=== PATIENT | male | born 1990 | race Caucasian/White ===

== ENCOUNTER 2024-08-10 12:40 | Emergency (ER) | payer MEDICAID, SELFPAY ==
[2024-08-10 13:27] VITALS: BP 164/98; PULSE 69; RESP 18; TEMP 37.1; O2SAT 99; BMI 33.5
--- NOTE | 2024-08-10 13:32 | XR_ITS ---
Examination: CT abdomen and pelvis without contrast. Coronal 3-D reconstructions. Sagittal 2-D reconstructions. Date and time of exam:August 10, 2024 1404 hrs. Indications: Lower abdominal pain beginning this morning, history 20 mm left renal calculus on CT study June 06, 2018 CTDI: vol (mGy): 10.4 DLP: (mGycm): 653 Technique: Axial images of the abdomen have been obtained, 3 mm slice thickness Intravenous contrast material has not been administered. Low dose protocols were performed. One or more of the following dose reduction techniques were used; automated exposure control, adjustment of the mA and/or KV according to patient size, use of iterative reconstruction technique. Findings: No focal liver or splenic lesions Contracted gallbladder No pancreatic or adrenal mass Mild bilateral renal parenchymal scar formation 17 mm staghorn calculus mid to lower pole left renal calyces with significant scar formation No hydronephrosis or ureteral calculi Normal appendix No bowel obstruction No diverticulitis No bladder mass or bladder calculi No prostatomegaly Moderate osteopenia Impression: 17 mm staghorn calculus mid to lower pole calyces left kidney with significant scar reformation left kidney No hydronephrosis or ureteral calculi Normal appendix No bladder mass or bladder calculi
--- NOTE | 2024-08-10 13:32 | PD.EDRME ---
Rapid Medical Screening Exam RME Arrival date/time: 08/10/24 12:40 This is a 34-year-old male who presents to the emergency department with complaints of left flank pain. History of nephrolithiasis. I have greeted and performed a focused initial assessment of this patient. Initial appropriate labs ordered at this time. A comprehensive ED assessment and evaluation of the patient and analysis of all test and completion of medical decision making process will be conducted by additional ED provider. Chief Complaint: Abdominal Pain Time Seen by Provider: 08/10/24 13:09 Vital signs: Vital Signs Temperature 98.7 F 08/10/24 13:27 Pulse Rate 69 08/10/24 13:27 Respiratory Rate 18 08/10/24 13:27 Blood Pressure 164/98 H 08/10/24 13:27 Pulse Oximetry (%) 99 08/10/24 13:27 Oxygen Delivery Method Room Air 08/10/24 13:27
[2024-08-10 13:51] LABS: Basophils # (Auto) 0.1 Thou/mm3 (0.0-0.2); Basophils % (Auto) 1 % (0-2.5); Eosinophils # (Auto) 0.1 Thou/mm3 (0.0-0.5); Eosinophils % (Auto) 1 % (0-10); Hematocrit 42.5 % (41.0-53.0); Hemoglobin 14.7 g/dL (13.5-16.0); Immature Granulocytes % (Auto) 0 % (0-0); Immature Granulocytes Auto 0.01 Thou/mm3 (0.00-0.00); Lymphocytes # (Auto) 2.4 Thou/mm3 (1.0-4.8); Lymphocytes % (Auto) 28 % (10-50); Mean Corpuscular HGB Conc 34.6 g/dl (31.0-37.0); Mean Corpuscular Hemoglobin 31.3 pg (25.0-35.0); Mean Corpuscular Volume 90 fL (80-100); Monocytes # (Auto) 0.6 Thou/mm3 (0.0-0.8); Monocytes % (Auto) 7 % (0-12); Neutrophils # (Auto) 5.3 Thou/mm3 (1.8-7.7); Neutrophils % (Auto) 63 % (37-80); Nucleated Red Blood Cell % 0 /100 WBC (0); Platelet Count 266 Thou/mm3 (140-440); RDW Standard Deviation 42.5 fL (35.1-43.9); White Blood Count 8.5 Thou/mm3 (3.8-10.6)
[2024-08-10] MEDS: KETOROLAC INJ 60 MG/2 ML VIAL IM (13:55)
[2024-08-10] MEDS: TAMSULOSIN HCL 0.4 MG CAPSULE PO (13:56)
[2024-08-10 14:13] LABS: Alanine Aminotransferase 17 U/L (10-49); Albumin, Serum 4.3 gm/dL (3.5-5.0); Albumin/Globulin Ratio 1.5 (1.2-2.2); Alkaline Phosphatase 55 U/L (46-116); Anion Gap 6 (7-16); Aspartate Amino Transferase 17 U/L (0-34); BUN/Creatinine Ratio 10 Ratio (12-20); Bilirubin,Total 0.4 mg/dL (0.3-1.2); Blood Urea Nitrogen 12 mg/dL (9-23); Calcium 10.7 mg/dL (8.3-10.6); Calcium (Corrected) 10.7 mg/dL (8.5-10.1); Carbon Dioxide 27.2 mMol/L (20.0-31.0); Chloride 106 mMol/L (98-107); Creatinine (Component) 1.2 mg/dL (0.6-1.3); Estimated Creatinine Clearance 102.7 mL/min (>60); Globulin 2.8 gm/dL (2.3-3.5); Glucose 119 mg/dL (74-106); Lipase 39 U/L (12-53); Osmolality,Calculated 278 (275-295); Potassium 4.5 mMol/L (3.4-5.1); Sodium 139 mMol/L (136-145); Total Protein 7.1 gm/dL (5.7-8.2); eGFR > 60 See Note
[2024-08-10 15:09] LABS: Collection Type, Urine Clean Catch
[2024-08-10 16:40] LABS: Bilirubin,Urine Negative (Negative); Blood,Urine 2+ (Negative); Calcium Oxalate Crystals,Urine 1+; Color,Urine Yellow (Lt Yel-Yel); Glucose, Urine Negative (Negative); Ketones,Urine Negative (Negative); Leukocyte Esterase,Urine Positive (Negative); Nitrite,Urine Negative (Negative); Protein,Urine 1+ (Neg - Trace); RBC,Urine 47 /hpf (0-3); Specific Gravity,Urine 1.036 (1.001-1.035); Squamous Epithelial Cell,Urine 5 /hpf (0-5); Urobilinogen,Urine Negative mg/dL (0.0-1.0); WBC,Urine 6 /hpf (0-5)
[2024-08-10 16:51] LABS: Clarity,Urine Hazy (Clear/Hazy)
--- NOTE | 2024-08-10 18:23 | EDNOTE_ITS ---
<Statement entered by Cass Ledbetter MD - 08/10/24 18:35> As co-signing physician, I was present and available for consult prn. I concur with the plan and care as documented by the midlevel provider. ED Abdominal Pain RME/HPI General Chief Complaint: Abdominal Pain Stated complaint: ABDOMINAL PAIN X1 HOUR Time seen by provider: 08/10/24 13:09 Arrival date/time: 08/10/24 12:40 RME / HPI RME / HPI narrative: 34-year-old male patient came in for evaluation regarding left flank pain. Onset of symptoms since 1 hour as sudden onset of left flank pain, described as dull ache, severity moderate. Patient denies any vomiting denies any dysuria denies any hematuria denies any other complaints medication was taken prior to arrival. Related Data Previous Rx's ?Medication ?Instructions ?Recorded cephalexin 500 mg capsule 500 mg PO Q8H 7 days #21 cap s 08/10/24 ibuprofen 800 mg tablet 800 mg PO TID PRN pain #30 t abs 08/10/24 Allergies Allergy/AdvReac Type Severity Reaction Status Date / Time Sulfa (Sulfonamide Allergy Severe SWELLING Verified 08/10/24 12:41 Antibiotics) Review of Systems Review of Systems Narrative Review of Systems: Review of system reviewed and within normal limits except mentioned in HPI ED Exam Narrative Physical exam: VITAL SIGNS: Reviewed. GENERAL APPEARANCE: Alert and interactive, follows commands, no acute distress, HEAD AND FACE: Non-traumatic. ENT: PERRL, pink conjunctivitis, eyelid no trauma, Mucous membrane moist. NECK: Supple, nontender, no nuchal rigidity. CHEST: No tenderness, no crepitus, no paradoxical movement, no retractions. LUNGS: Clear, well ventilated, symmetric, no rales, no wheezing, no ronchi, no stridor, good breath sounds bilaterally. HEART: Regular rate, regular rhythm, no murmur, no gallops. ABDOMEN: Soft, positive bowel sounds, nondistended, no guarding, nontender, no rebound, no masses, RECTAL: Deferred. GENITAL: Deferred. NEUROLOGICAL: Gross motor function intact sensory function intact, Appropriate for age. MUSCULOSKELETAL: low back nontender, full range of motion. EXTREMITIES: Nontender, full range of motion. SKIN: Color pink, dry, no rash, no lacerations, no abrasions, no contusions. LYMPHATICS: Deferred. Course Quality Measures none Orders Category Date Time Status CT abdomen pelvis wo con Stat Exams 08/10/24 13:32 Completed CBC Stat Lab 08/10/24 13:40 Completed Comprehensive Metabolic Panel Stat Lab 08/10/24 13:40 Completed Lipase Stat Lab 08/10/24 13:40 Completed Urinalysis Stat Lab 08/10/24 14:48 Completed Ketorolac Inj [Toradol Inj] Med 08/10/24 13:32 Discontinued 60 mg IM X1 ONE Tamsulosin HCl [Flomax] Med 08/10/24 13:32 Discontinued 0.4 mg PO X1 ONE cephALEXin [Keflex] Med 08/10/24 18:20 Discontinued 500 mg PO X1 ONE Vital Signs Vital signs: Vital Signs Temperature 98.7 F 08/10/24 13:27 Pulse Rate 69 08/10/24 13:27 Respiratory Rate 18 08/10/24 13:27 Blood Pressure 164/98 H 08/10/24 13:27 Pulse Oximetry (%) 99 08/10/24 13:27 Oxygen Delivery Method Room Air 08/10/24 13:27 Abdominal Pain MDM MDM Narrative MDM Narrative:: 34-year-old male patient came in for evaluation regarding left flank pain. Onset of symptoms since 1 hour as sudden onset of left flank pain, described as dull ache, severity moderate. Patient denies any vomiting denies any dysuria denies any hematuria denies any other complaints medication was taken prior to arrival. Patient's workup is significant for mild UTI otherwise unremarkable. CT scan of the abdomen pelvis showed nonobstructing staghorn calculi on the left kidney, otherwise unremarkable. Results discussed with the patient. Patient was also given copy of his CT scan of the abdomen pelvis. Was advised to follow-up closely with PCP and for referral to urologist. Patient was given Keflex in the ED Patient appears nontoxic and hemodynamically stable. Patient discharged home and instructed to follow-up with primary care provider in 24 to 48 hours. Instructed to return to the emergency department immediately if worsening of symptoms Patient data External records reviewed:: None Clinical information provided by:: none Social determinants that could affect healthcare access:: none Patient has the following chronic illnesses:: History of kidney stone How is presenting disease/condition affected by chronic disease/condition?: exacerbated by Evaluation data The following diagnostics were reviewed and interpreted by me:: lab results and radiology exam(s) Lab and/or radiology exams considered but not ordered:: None Interpretation Summary: See results in MDM Medications / Prescriptions Medications or Prescriptions considered but not ordered:: None Medication administrations:: Medication Administration History Discontinued Medications Cephalexin HCl (Cephalexin 250 Mg Capsule) 500 mg PO X1 ONE Stop: 08/10/24 18:21 Ketorolac Tromethamine (Ketorolac Inj 60 Mg/2 Ml Vial) 60 mg IM X1 ONE Stop: 08/10/24 13:33 Last Admin: 08/10/24 13:55 Dose: 60 mg Documented By: Tamsulosin HCl (Tamsulosin Hcl 0.4 Mg Capsule) 0.4 mg PO X1 ONE Stop: 08/10/24 13:33 Last Admin: 08/10/24 13:56 Dose: 0.4 mg Documented By: Flomax Toradol and Keflex Consultations Consultation(s) initiated? (list below): No Diagnosis Differential diagnosis abdominal pain: abdominal pain, calculus of kidney and other (UTI) Most likely diagnosis given after review of the tests above:: UTI, staghorn calculi in the left kidney Admission Indicated Admission indicated?: not indicated Admission Request Was there a request for admission?: No Disposition Plan Disposition Plan: Discharge Discharge Attestation Discharge Attestation: The patient and all family members were given an opportunity to ask questions and understood the discharge instructions. Discharge instructions specifically effects, indications for sooner follow up or return to the emergency department, and the expected course of current diagnosis. Patient condition: Stable Discharge Plan Plan Patient Disposition: HOME (Self Care) Disposition Comment: Stable Prescriptions/Referrals Prescriptions/Med Rec: New cephalexin 500 mg capsule 500 mg PO Q8H 7 Days Qty: 21 0RF ibuprofen 800 mg tablet 800 mg PO TID PRN (Reason: pain) Qty: 30 0RF Referrals: No Primary/Family,Physician [Primary Care Provider] - In 1 week Problem List Clinical Impression: Urinary tract infection, Staghorn kidney stones Patient/Caregiver Discharge Instructions Discharge Activity: activity as tolerated Education Materials: ED Bladder Infection, Male (Adult) Additional Instructions: Thank you for the opportunity for serving you today. You are stable for discharged . You are advised to: Follow-up with your PCP in 1 to 2 days and as per referral to urologist Return to ED for worsening of symptoms Increase oral fluids Take medication as prescribed Print Language: Ivorian Stand Alone Forms: Nicol Award Info., Patient Portal Info Letter PA/RN ANESTHETIST Supervising Physician PA/RN ANESTHETIST Supervising Physician: MD Anatoly
[2024-08-10] MEDS: cephALEXin 250 MG CAPSULE 500 MG PO (18:31)
== END 2024-08-10 19:05 | disposition home or self-care (01) ==
PROVIDERS: Nurse Practitioner Primary Care; Emergency Provider Emergency Medicine
DX: N39.0 Urinary tract infection, site not specified (principal); N20.0 Calculus of kidney; Z87.442 Personal history of urinary calculi
CPT/HCPCS: 36415; 74176; 80053; 81001; 83690; 85025; 96372; 99284; J1885; A9270

== ENCOUNTER 2024-11-25 10:19 | Emergency (ER) | payer MEDICAID, SELFPAY ==
[2024-11-25 10:20] VITALS: BMI 32.5
[2024-11-25 10:35] VITALS: BP 167/98; PULSE 80; RESP 17; TEMP 36.7; O2SAT 100
--- NOTE | 2024-11-25 10:40 | XR_ITS ---
Examination: CT abdomen and pelvis without contrast. Coronal 3-D reconstructions. Sagittal 2-D reconstructions. Date and time of exam:November 25, 2024 1056 hours Comparison August 10, 2024 INDICATIONS: Left-sided flank pain and nausea today, history staghorn calculus left kidney CTDI: vol (mGy): 9.88 DLP: (mGycm): 609 Technique: Axial images of the abdomen have been obtained, 3 mm slice thickness Intravenous contrast material has not been administered. Low dose protocols were performed. One or more of the following dose reduction techniques were used; automated exposure control, adjustment of the mA and/or KV according to patient size, use of iterative reconstruction technique. Findings: No focal liver or splenic lesions No gallstones No pancreatic or adrenal mass 15 mm staghorn calculus mid to lower pole left kidney No hydronephrosis or ureteral calculi Normal appendix No bowel obstruction No diverticulitis Mild thickening of urinary bladder wall IMPRESSION: 15 mm left renal staghorn calculus No hydronephrosis or ureteral calculi Normal appendix Cystitis pattern
--- NOTE | 2024-11-25 10:41 | PD.EDMALE ---
ED Male Genitalurinary RME/HPI General Chief complaint: Urogenital-Male Stated complaint: LEFT FLANK PAIN Time Seen by Provider: 11/25/24 10:29 Source: patient Arrival date/time: 11/25/24 10:19 34-year-old male with no known medical history presents to the emergency room with a chief complaint of left flank pain x 2 days Mode of arrival: ambulatory Limitations: no limitations Related Data Previous Rx's ?Medication ?Instructions ?Recorded ibuprofen 800 mg tablet 800 mg PO TID PRN pain #30 tabs 08/10/24 hydrocodone 5 mg-acetaminophen 325 1 tab PO BID PRN pain #10 tabs 11/25/24 mg tablet nitrofurantoin 100 mg PO Q12H 5 days #10 caps 11/25/24 monohydrate/macrocrystals 100 mg capsule (Macrobid) Allergies Allergy/AdvReac Type Severity Reaction Status Date / Time Sulfa (Sulfonamide Allergy Severe SWELLING Verified 08/10/24 12:41 Antibiotics) Review of Systems Review of Systems Systems Reviewed: All systems reviewed, normal except as documented Constitutional Constitutional: Reports system reviewed and no additional complaints, except as documented, Denies fatigue, Denies fever(s), Denies headache(s) and Denies weakness Eyes Eyes: Reports system reviewed and no additional complaints, except as documented, Denies blurry vision and Denies change in vision ENT Ears, Nose, Mouth, and Throat: Reports system reviewed and no additional complaints, except as documented, Denies otalgia, Denies headache(s), Denies nasal congestion, Denies throat swelling and Denies vertigo Cardiovascular Cardiovascular: Reports system reviewed and no additional complaints, except as documented, Denies chest pain, Denies dyspnea and Denies dyspnea on exertion Respiratory Respiratory: Reports system reviewed and no additional complaints, except as documented, Denies chest congestion, Denies cough, Denies dyspnea, Denies dyspnea on exertion and Denies wheezing Gastrointestinal Gastrointestinal: Reports system reviewed and no additional complaints, except as documented, Denies abdominal pain, Denies cramping, Denies nausea and Denies vomiting Genitourinary Genitourinary: Reports system reviewed and no additional complaints, except as documented, Denies dysuria and Denies hematuria Musculoskeletal Musculoskeletal: Reports system reviewed and no additional complaints, except as documented and Reports back pain Integumentary/Breasts Skin/Breast: Reports system reviewed and no additional complaints, except as documented and Denies wounds Neurologic Neurologic: Reports system reviewed and no additional complaints, except as documented, Denies confusion, Denies headache(s), Denies lack of coordination, Denies vertigo and Denies weakness Psychiatric Psychiatric: Reports system reviewed and no additional complaints, except as documented, Denies anxiety, Denies confusion, Denies depression, Denies paranoia, Denies suicidal ideation and Denies tactile hallucinations Endocrine Endocrine: Reports system reviewed and no additional complaints, except as documented and Denies fatigue Hematologic/Lymphatic Hematologic/Lymphatic: Reports system reviewed and no additional complaints, except as documented and Denies lymphadenopathy Allergic/Immunologic Allergic/Immunologic: Reports system reviewed and no additional complaints, except as documented, Denies throat swelling, Denies urticaria and Denies wheezing Past Medical History Past Medical History NEUROLOGIC: Positive Neurological Disorders and Meningitis (AT 4 YRS OLD [facility]); Negative Seizures CARDIAC: Negative Cardiac Disorders, Congestive Heart Failure, Edema or Cellulitis (SCRATCH RIGHT ARM FROM CAT) RESPIRATORY: Negative Chronic Obstructive Pulmonary Disease (COPD), Tuberculosis or Sleep Apnea GASTROINTESTINAL: Negative Gastrointestinal Disorders or Hepatitis GENITOURINARY: Positive Genitourinary Disorders and Kidney Stones (NUMEROUS PROCEDURES); Negative Renal Disease MUSCULOSKELETAL: Negative Musculoskeletal Disorders ENDOCRINE: Negative Endocrine Disorders, Diabetes Mellitus Type 1 or Diabetes Mellitus Type 2 HEMATOLOGIC: Negative Blood Disorders, Anemia or Clotting Problems OTHER HISTORY: Positive Hospitalization (H[facility]P SP[facility]AL [facility] AT 4 YRS OLD, DUE TO KIDNEY STONE 06/05), Autism and Chicken Pox; Negative Autoimmune Disease, Shingles, Falls, Blood Transfusions, Blood Transfusion Reaction, Anesthesia Reactions, Chemotherapy, MRSA, Measles, Mumps or Cancer Family History FAMILY HISTORY: Positive Family Psychiatric Problems (MOTHER (DEPRESSION)), Family Respiratory Disorders (MOTHER (ASTHMA)), Family Cardiac Disorders (MOTHER (HTN)), Family Cancer (MOTHER (THYROID)) and Family Surgery (MOTHER,SISTER); Negative Family Gastrointestinal Problems or Family Anesthesia Reaction Surgical History SURGICAL: Negative Cardiac Surgery, Pacemaker, Endocrine Surgery, Thyroidectomy, Abdominal Surgery, Joint Replacement, Neurologic Surgery or Brain Shunt Social History SMOKING STATUS: Former smoker SECOND HAND EXPOSURE: No ED Exam General Limitations: Present no limitations General appearance: Present alert and in no apparent distress Head Head exam: Present atraumatic Eye Eye exam: Present normal appearance, PERRL and EOMI ENT ENT exam: Present normal exam, normal oropharynx and mucous membranes moist Neck Neck exam: Present normal inspection, full ROM and trachea midline Chest Chest inspection: Present normal inspection and symmetric chest wall rise Respiratory Respiratory exam: Present normal lung sounds bilaterally Cardiovascular Cardiovascular exam: Present regular rate, normal rhythm and normal heart sounds Abdominal Exam Abdominal exam: Present soft and normal bowel sounds Extremities Exam Extremities exam: Present normal inspection and full ROM Back Exam Back exam: Present normal inspection, full ROM and CVA tenderness (L) Neurological Exam Neurological exam: Present alert, oriented X3 and CN II-XII intact Psychiatric Psychiatric exam: Present normal affect and normal mood Skin Skin exam: Present warm, dry, intact and normal color Course Quality Measures none Orders Category Date Time Status CT abdomen pelvis wo con Stat Exams 11/25/24 10:40 Completed CBC Stat Lab 11/25/24 11:10 Completed CMP [Comprehensive Metabolic Panel] Stat Lab 11/25/24 11:10 Completed Lipase Stat Lab 11/25/24 11:10 Completed UA [Urinalysis] Stat Lab 11/25/24 10:55 Completed Urine Culture Stat Lab 11/25/24 10:55 Received Ketorolac Inj [Toradol Inj] Med 11/25/24 10:40 Discontinued 30 mg IM X1 ONE Ondansetron Odt [Zofran Odt] Med 11/25/24 10:40 Discontinued 4 mg PO X1 ONE Vital Signs Vital signs: Vital Signs Temperature 98.0 F 11/25/24 10:35 Pulse Rate 80 11/25/24 10:35 Respiratory Rate 17 11/25/24 10:35 Blood Pressure 167/98 H 11/25/24 10:35 Pulse Oximetry (%) 100 11/25/24 10:35 Oxygen Delivery Method Room Air 11/25/24 10:35 Urogenital - Male MDM Narrative MDM Narrative:: 34-year-old male with no known medical history presents to the emergency room with a chief complaint of left flank pain x 2 days Patient is hemodynamically stable and in no apparent distress. There is no tachycardia tachypnea and the patient is afebrile Physical examination shows left CVA tenderness with palpation. The patient denies any abdominal tenderness or vomiting. CT of the abdomen and pelvis was completed and there is no hydronephrosis or ureter calculi. There is however a 15 mm left renal staghorn calculus. The patient also has a mild urinary tract infection. Antibiotics were sent to his pharmacy My attending physician Dr. Acosta was consulted and based on his recommendations the patient is able to be discharged Patient was discharged and educated to follow-up with primary care provider in the next 24 to 48 hours and return to the emergency room for any evidence of worsening signs or symptoms Patient data External records reviewed:: [facility] previous records Clinical information provided by:: patient Social determinants that could affect healthcare access:: none Patient has the following chronic illnesses:: No chronic illness How is presenting disease/condition affected by chronic disease/condition?: no chronic disease Evaluation data The following diagnostics were reviewed and interpreted by me:: lab results and radiology exam(s) Lab and/or radiology exams considered but not ordered:: Labs and radiology exams considered and ordered Interpretation Summary: CT abdomen and pelvis-Findings: No focal liver or splenic lesions No gallstones No pancreatic or adrenal mass 15 mm staghorn calculus mid to lower pole left kidney No hydronephrosis or ureteral calculi Normal appendix No bowel obstruction No diverticulitis Mild thickening of urinary bladder wall IMPRESSION: 15 mm left renal staghorn calculus No hydronephrosis or ureteral calculi Normal appendix Cystitis pattern Medications / Prescriptions Medications or Prescriptions considered but not ordered:: Medication given Medication administrations:: Medication Administration History Discontinued Medications Ketorolac Tromethamine (Ketorolac Inj 60 Mg/2 Ml Vial) 30 mg IM X1 ONE Stop: 11/25/24 10:41 Last Admin: 11/25/24 10:47 Dose: 30 mg Documented By: [facility] Ondansetron HCl (Ondansetron Odt 4 Mg Tabrap) 4 mg PO X1 ONE; Protocol Stop: 11/25/24 10:41 Last Admin: 11/25/24 10:47 Dose: 4 mg Documented By: [facility] Medication given Consultations Consultation(s) initiated? (list below): No Diagnosis Urogenital Male Differential Diagnosis: urinary tract infection, urethritis, acute retention of urine and other Most likely diagnosis given after review of the tests above:: Urinary tract infection Admission Indicated Admission indicated?: not indicated Admission Request Was there a request for admission?: No Disposition Plan Disposition Plan: Discharge Discharge Attestation Discharge Attestation: The patient and all family members were given an opportunity to ask questions and understood the discharge instructions. Discharge instructions specifically effects, indications for sooner follow up or return to the emergency department, and the expected course of current diagnosis. Patient condition: Stable Discharge Plan Plan Patient Disposition: HOME (Self Care) Discharge Disposition comment: Stable Prescriptions/Referrals Prescriptions/Med Rec: New hydrocodone-acetaminophen 5-325 mg tablet 1 tab PO BID MDD 10mg PRN (Reason: pain) Qty: 10 0RF nitrofurantoin monohyd/m-cryst [Macrobid] 100 mg capsule 100 mg PO Q12H 5 Days Qty: 10 0RF Rx Instructions: must administer with a meal/food No Action ibuprofen 800 mg tablet 800 mg PO TID PRN (Reason: pain) Qty: 30 0RF Referrals: Christoph Reynolds MD [Primary Care Provider] - In 1 week Problem List Clinical Impression: Urinary tract infection, Staghorn calculus Patient/Caregiver Discharge Instructions Education Materials: ED Hematuria, ED Kidney Stone w/ Colic Additional Instructions: Please follow-up with your primary care provider in the next 24 to 48 hours Antibiotics were sent to your pharmacy to help you with your urinary tract infection You have a 15 mm left renal staghorn calculus. Please keep your appointment with a urologist for further management as this is the most probable cause of your pain For any evidence of worsening signs or symptoms return to the emergency room immediately Print Language: Kinyarwanda Stand Alone Forms: Nicol Award Info., Patient Portal Info Letter PA/CAN INTAKE WORKER Supervising Physician PA/SHIRAZ Supervising Physician: Dr. Acosta
[2024-11-25] MEDS: ONDANSETRON ODT 4 MG TABRAP PO (10:47)
[2024-11-25] MEDS: KETOROLAC INJ 60 MG/2 ML VIAL 30 MG IM (10:47)
[2024-11-25 11:09] LABS: Collection Type, Urine Clean Catch
[2024-11-25 11:19] LABS: Bilirubin,Urine Negative (Negative); Blood,Urine 3+ (Negative); Color,Urine Lt-Yellow (Lt Yel-Yel); Glucose, Urine Negative (Negative); Ketones,Urine Negative (Negative); Leukocyte Esterase,Urine Positive (Negative); Nitrite,Urine Negative (Negative); Protein,Urine Trace (Neg - Trace); RBC,Urine 115 /hpf (0-3); Specific Gravity,Urine 1.019 (1.001-1.035); Squamous Epithelial Cell,Urine 2 /hpf (0-5); Urobilinogen,Urine Negative mg/dL (0.0-1.0); WBC,Urine 16 /hpf (0-5)
[2024-11-25 11:24] LABS: Clarity,Urine Hazy (Clear/Hazy)
[2024-11-25 11:36] LABS: Basophils % (Auto) 0 % (0-2.5); Eosinophils # (Auto) 0.1 Thou/mm3 (0.0-0.5); Eosinophils % (Auto) 1 % (0-10); Hematocrit 43.5 % (41.0-53.0); Hemoglobin 15.4 g/dL (13.5-16.0); Immature Granulocytes % (Auto) 0 % (0-0); Immature Granulocytes Auto 0.03 Thou/mm3 (0.00-0.00); Lymphocytes # (Auto) 1.5 Thou/mm3 (1.0-4.8); Lymphocytes % (Auto) 12 % (10-50); Mean Corpuscular HGB Conc 35.4 g/dl (31.0-37.0); Mean Corpuscular Hemoglobin 32.4 pg (25.0-35.0); Mean Corpuscular Volume 91 fL (80-100); Monocytes % (Auto) 8 % (0-12); Neutrophils # (Auto) 9.6 Thou/mm3 (1.8-7.7); Neutrophils % (Auto) 78 % (37-80); Nucleated Red Blood Cell % 0 /100 WBC (0); Platelet Count 284 Thou/mm3 (140-440); RDW Standard Deviation 43.2 fL (35.1-43.9); Red Blood Count 4.76 Miln/mm3 (4.50-5.90); White Blood Count 12.3 Thou/mm3 (3.8-10.6)
[2024-11-25 11:51] LABS: Alanine Aminotransferase 24 U/L (10-49); Albumin, Serum 4.7 gm/dL (3.5-5.0); Albumin/Globulin Ratio 1.8 (1.2-2.2); Alkaline Phosphatase 58 U/L (46-116); Anion Gap 8 (7-16); BUN/Creatinine Ratio 11 Ratio (12-20); Bilirubin,Total 0.6 mg/dL (0.3-1.2); Blood Urea Nitrogen 12 mg/dL (9-23); Calcium 10.5 mg/dL (8.3-10.6); Calcium (Corrected) 10.5 mg/dL (8.5-10.1); Carbon Dioxide 26.4 mMol/L (20.0-31.0); Chloride 106 mMol/L (98-107); Creatinine (Component) 1.1 mg/dL (0.6-1.3); Estimated Creatinine Clearance 110.2 mL/min (>60); Globulin 2.6 gm/dL (2.3-3.5); Glucose 102 mg/dL (74-106); Lipase 52 U/L (12-53); Osmolality,Calculated 279 (275-295); Potassium 4.5 mMol/L (3.4-5.1); Sodium 140 mMol/L (136-145); Total Protein 7.3 gm/dL (5.7-8.2); eGFR > 60 See Note
== END 2024-11-25 12:08 | disposition home or self-care (01) ==
PROVIDERS: Nurse Practitioner Family; Emergency Provider Family Medicine; PCP Family Medicine
DX: N20.0 Calculus of kidney (principal); N39.0 Urinary tract infection, site not specified
CPT/HCPCS: 36415; 74176; 80053; 81001; 83690; 85025; 87086; 96372; 99284; J1885; Q0162

== ENCOUNTER → 2024-12-25 | Outpatient (CLI) | payer MEDICAID, SELFPAY ==
--- NOTE | 2024-12-25 08:30 | XR_ITS ---
Examination: CT abdomen and pelvis without contrast. Coronal 3-D reconstructions. Sagittal 2-D reconstructions. Date and time of exam:December 25, 2024 0825 hours INDICATIONS: Left-sided abdominal pain beginning one year ago, 15 mm staghorn calculus left kidney on CT study November 25, 2024 CTDI: vol (mGy): 9.30 DLP: (mGycm): 587 Technique: Axial images of the abdomen have been obtained, 3 mm slice thickness Intravenous contrast material has not been administered. Low dose protocols were performed. One or more of the following dose reduction techniques were used; automated exposure control, adjustment of the mA and/or KV according to patient size, use of iterative reconstruction technique. Findings: No focal liver or splenic lesion No gallstones No pancreatic or adrenal mass 12 mm calculus lower pole calyx left kidney No hydronephrosis or ureteral calculi Normal appendix No bowel obstruction No bladder mass or bladder calculi Intact osseous structures IMPRESSION: 12 mm calculus lower pole calyx left kidney No hydronephrosis or ureteral calculi
== END | disposition home or self-care (01) ==
LOC: CCTX 08:07
PROVIDERS: PCP Emergency Medicine; Referring Provider Emergency Medicine; Visit Provider Emergency Medicine
DX: N20.0 Calculus of kidney (principal)
CPT/HCPCS: 74176

== ENCOUNTER 2025-04-17 12:52 | Emergency (ER) | payer MEDICAID, SELFPAY ==
[2025-04-17 12:56] VITALS: BP 144/91; PULSE 73; RESP 18; TEMP 36.5; O2SAT 99; BMI 36.1
--- NOTE | 2025-04-17 13:05 | XR_ITS ---
Examination: CT abdomen and pelvis without contrast. Coronal 3-D reconstructions. Sagittal 2-D reconstructions. Date and time of exam: April 17, 2025, 1316 hours, comparison December 25, 2024 INDICATIONS: Bilateral flank pain today, history kidney stones CTDI: vol (mGy): 10.7 DLP: (mGycm): 708 Technique: Axial images of the abdomen have been obtained, 3 mm slice thickness Intravenous contrast material has not been administered. Low dose protocols were performed. One or more of the following dose reduction techniques were used; automated exposure control, adjustment of the mA and/or KV according to patient size, use of iterative reconstruction technique. Findings: No focal liver or splenic lesions No gallstones No pancreatic or adrenal mass 10 x 13 mm calculus in the left renal pelvis with minimal left hydronephrosis No ureteral calculi Normal appendix No bowel obstruction No bladder mass or bladder calculi No prostatomegaly IMPRESSION: 10 x 13 mm calculus in the left renal pelvis with minimal left hydronephrosis
--- NOTE | 2025-04-17 13:05 | PD.EDRME ---
Rapid Medical Screening Exam RME Arrival date/time: 04/17/25 12:52 5-year-old male with history of kidney stones presents to the Emergency Department for complaints of flank pain back pain and kidney stone pain Chief Complaint: Back Pain/Injury Vital signs: Vital Signs Temperature 97.7 F 04/17/25 12:56 Pulse Rate 73 04/17/25 12:56 Respiratory Rate 18 04/17/25 12:56 Blood Pressure 144/91 H 04/17/25 12:56 Pulse Oximetry (%) 99 04/17/25 12:56 Oxygen Delivery Method Room Air 04/17/25 12:56 Vital signs reviewed by provider: Yes Exam: On exam patient appears in mild tenderness Clinical Impression: Lab work and imaging ordered
[2025-04-17 13:45] LABS: Collection Type, Urine Clean Catch
[2025-04-17 14:01] LABS: Bilirubin,Urine Negative (Negative); Blood,Urine 2+ (Negative); Clarity,Urine Clear (Clear/Hazy); Color,Urine Yellow (Lt Yel-Yel); Glucose, Urine Negative (Negative); Ketones,Urine Negative (Negative); Leukocyte Esterase,Urine Positive (Negative); Nitrite,Urine Negative (Negative); PH,Urine 6.5 (5.0-7.0); Protein,Urine 1+ (Neg - Trace); RBC,Urine 192 /hpf (0-3); Specific Gravity,Urine 1.026 (1.001-1.035); Squamous Epithelial Cell,Urine 1 /hpf (0-5); Urobilinogen,Urine 2.0 mg/dL (0.0-1.0); WBC,Urine 11 /hpf (0-5)
[2025-04-17 14:04] LABS: Culture Indicated,Urine Yes
[2025-04-17 14:10] LABS: Basophils # (Auto) 0.0 Thou/mm3 (0.0-0.2); Basophils % (Auto) 1 % (0-2.5); Eosinophils # (Auto) 0.1 Thou/mm3 (0.0-0.5); Eosinophils % (Auto) 2 % (0-10); Hematocrit 41.1 % (41.0-53.0); Hemoglobin 14.1 g/dL (13.5-16.0); Immature Granulocytes Auto 0.01 Thou/mm3 (0.00-0.00); Lymphocytes # (Auto) 1.9 Thou/mm3 (1.0-4.8); Lymphocytes % (Auto) 28 % (10-50); Mean Corpuscular HGB Conc 34.3 g/dl (31.0-37.0); Mean Corpuscular Hemoglobin 31.9 pg (25.0-35.0); Mean Corpuscular Volume 93 fL (80-100); Monocytes # (Auto) 0.8 Thou/mm3 (0.0-0.8); Monocytes % (Auto) 12 % (0-12); Neutrophils # (Auto) 4.0 Thou/mm3 (1.8-7.7); Neutrophils % (Auto) 58 % (37-80); Nucleated Red Blood Cell # 0.00 Thou/mm3 (0.00-0.00); Nucleated Red Blood Cell % 0 /100 WBC (0); Platelet Count 274 Thou/mm3 (140-440); RDW Standard Deviation 43.4 fL (35.1-43.9); Red Blood Count 4.42 Miln/mm3 (4.50-5.90); White Blood Count 6.8 Thou/mm3 (3.8-10.6)
[2025-04-17 14:29] LABS: Alanine Aminotransferase 17 U/L (10-49); Albumin, Serum 4.5 gm/dL (3.5-5.0); Albumin/Globulin Ratio 1.8 (1.2-2.2); Alkaline Phosphatase 49 U/L (46-116); Anion Gap 6 (7-16); Aspartate Amino Transferase 18 U/L (0-34); BUN/Creatinine Ratio 7 Ratio (12-20); Bilirubin,Total 0.4 mg/dL (0.3-1.2); Blood Urea Nitrogen 7 mg/dL (9-23); Calcium 10.4 mg/dL (8.3-10.6); Calcium (Corrected) 10.4 mg/dL (8.5-10.1); Carbon Dioxide 28.1 mMol/L (20.0-31.0); Chloride 109 mMol/L (98-107); Creatinine (Component) 1.0 mg/dL (0.6-1.3); Estimated Creatinine Clearance 122.8 mL/min (>60); Globulin 2.5 gm/dL (2.3-3.5); Glucose 68 mg/dL (74-106); Lipase 28 U/L (12-53); Osmolality,Calculated 280 (275-295); Potassium 4.1 mMol/L (3.4-5.1); Sodium 143 mMol/L (136-145); Total Protein 7.0 gm/dL (5.7-8.2); eGFR > 60 See Note
--- NOTE | 2025-04-17 14:41 | PC.CC ---
Addendum entered by Alisa Lynn RN 04/17/25 19:10: 1910: I did not take transfer packet to ED. Spoke to [facility], informed him of the outpatient information on tracker. Addendum entered by Alisa Lynn RN 04/17/25 19:08: received call back from Dr Eduardo Mariscal information provided. [address], [place] [phone]. Spoke to Dr Robert, information provided. He stated to cancel transfer request. Called [facility], spoke to [facility] to cancel. Called [facility] left to cancel transfer request. ED tracker updated with the information. Addendum entered by Alisa Lynn RN 04/17/25 18:49: 1855: Transfer packet created CD and taken to ED. 1844: I called and spoke to Davey castaneda/ [facility], he will reach out to Dr. Erik Calrk (urologist). I provided the ED contact information if after [phone]. [phone]: discussed this case with Dr. Robert, provided information from earlier. He stated to reach out to to get outpatient information. Addendum entered by Alisa Lynn RN 04/17/25 17:56: 1748: Catina Samaniego called back, clinical update provided. She will present case and call back. Addendum entered by Alisa Lynn RN 04/17/25 17:38: 1737: called [facility] to initiate transfer, Aaliyah will inform nurse and will call me back. Resent packet Addendum entered by Alisa Lynn RN 04/17/25 17:34: 1726: called [facility], had to leave to return my call. Addendum entered by Alisa Lynn RN 04/17/25 17:20: 1716: clinicals and imaging sent to [facility]. 1708: spoke to Dr. Morales, he stated to send to [facility]. 1700: received call from Christina THORNE, she stated Urologist in [place] pt can f/u as outpatient since he does not have UTI. She stated she can try Urology in [place] but will require an insurance auth. I told her I would discuss with Dr. Morales and call them back. 1450: initiated transfer request w/ Christina castaneda/ [facility], she spoke to Dr. Morales. She will present to Urology. Addendum entered by Alisa Lynn RN 04/17/25 14:50: 1445: received VM from Imelda castaneda/ [facility], no urology services today Original Note: 1440: Sent out clinicals to [facility], , and [facility]. 1437: called [facility], left . 1427: received order for transfer for Urology for Left 13mm Kidney stone.
--- NOTE | 2025-04-17 14:55 | PD.EDBACK ---
ED Back Injury Pain RME/HPI General Chief Complaint: Back Pain/Injury Stated Complaint: KIDNEY STONE PAIN Time Seen by Provider: 04/17/25 13:45 Arrival date/time: 04/17/25 12:52 RME / HPI RME / HPI Narrative: 04/17/25 12:52 5-year-old male with history of kidney stones presents to the Emergency Department for complaints of flank pain back pain and kidney stone pain See MDM for Dr. Morales's HPI documentation. Exam: On exam patient appears in mild tenderness Impression: Lab work and imaging ordered Related Data Previous Rx's ?Medication ?Instructions ?Recorded ibuprofen 800 mg tablet 800 mg PO TID PRN pain #30 tabs 08/10/24 hydrocodone 5 mg-acetaminophen 325 1 tab PO BID PRN pain #10 tabs 11/25/24 mg tablet Allergies Allergy/AdvReac Type Severity Reaction Status Date / Time Sulfa (Sulfonamide Allergy Severe SWELLING Verified 04/17/25 12:54 Antibiotics) Review of Systems Review of Systems Systems Reviewed: All systems reviewed, normal except as documented Past Medical History Past Medical History NEUROLOGIC: Positive Neurological Disorders and Meningitis (AT 4 YRS OLD [facility]) GENITOURINARY: Positive Genitourinary Disorders and Kidney Stones (NUMEROUS PROCEDURES) MUSCULOSKELETAL: Negative Musculoskeletal Disorders OTHER HISTORY: Positive Hospitalization (HOSP SPINAL MENINGITIS AT 4 YRS OLD, DUE TO KIDNEY STONE 06/05), Autism and Chicken Pox Family History FAMILY HISTORY: Positive Family Psychiatric Problems (MOTHER (DEPRESSION)), Family Respiratory Disorders (MOTHER (ASTHMA)), Family Cardiac Disorders (MOTHER (HTN)), Family Cancer (MOTHER (THYROID)) and Family Surgery (MOTHER,SISTER) Social History SMOKING STATUS: Former smoker SECOND HAND EXPOSURE: No ED Exam Narrative Physical exam: See [facility] for Dr. Morales's physical exam documentation. Course Quality Measures none Orders Category Date Time Status Saline [Insert IV] NOW Care 04/17/25 14:25 Active Referral - Customer Service Security Officer Stat Cons 04/17/25 14:[address] abdomen pelvis wo con Stat Exams 04/17/25 13:05 Completed CBC Stat Lab 04/17/25 13:34 Completed Comprehensive Metabolic Panel Stat Lab 04/17/25 13:34 Completed Lipase Stat Lab 04/17/25 13:34 Completed Magnesium Stat Lab 04/17/25 13:34 Completed UA, C/S IF [Urinalysis, C/S if Indicated] Stat Lab 04/17/25 13:35 Completed Urine Culture Stat Lab 04/17/25 13:35 Received Dextrose 5%-Ns [D5-Ns] 1,000 ml Med 04/17/25 15:45 Discontinued IV 1,000 mls/hr Ketorolac Inj [Toradol Inj] Med 04/17/25 14:25 Discontinued 30 mg IVP X1 ONE Morphine* Inj Med 04/17/25 14:25 Discontinued 4 mg IV X1 ONE Ondansetron Inj [Zofran Inj] Med 04/17/25 14:25 Discontinued 4 mg IVP X1 ONE Sodium Chloride 0.9% 1000 ml [Ns] 1,000 ml Med 04/17/25 14:25 Discontinued IV 999 mls/hr Vital Signs Vital signs: Vital Signs Temperature 97.7 F 04/17/25 12:56 Pulse Rate 73 04/17/25 12:56 Respiratory Rate 18 04/17/25 12:56 Blood Pressure 144/91 H 04/17/25 12:56 Pulse Oximetry (%) 99 04/17/25 12:56 Oxygen Delivery Method Room Air 04/17/25 12:56 Pulse ox is 99% on room air which is adequate. Back Pain / Injury MDM Narrative MDM Narrative:: This section includes all my notes and documentations, including HPI, PE, and ED course. Curly Morales MD HPI: 35 year old male here with several days of severe left flank pain. With nausea. No vomiting. No fever. No obvious hematuria. No other complaints. ROS: All negative except as documented in HPI. Physical Exam: General: Alert and oriented. In obvious pain. Eyes: Conjunctivae and lids clear. ENT: No nasal congestion. Neck: Supple. Heart: RRR. Lungs: No respiratory distress. Good air movement. No rhonchi, wheezing, rales. Abdomen: Soft and nontender. Normal bowel sounds. No distension. No rebound or guarding. Back: No CVA tenderness. Skin: Warm and dry. Neuro: Alert and oriented X 3. I reviewed all diagnostic test results: My review of the CT abdomen/pelvis report is: Left renal pelvis stone measuring 10 x 13 mm with left hydronephrosis. Blood/urine tests unremarkable, except hematuria. At this point, diagnoses include: Large left kidney stone Treatment here included: IVF Zofran 4 mg IV Toradol 30 mg IV Morphine 4 mg IV No improvement noted. I discussed the case with urologist Dr. Quintana. About the presentation and exam and diagnostics and treatments here. And needing further care in the hospital. Recommended transfer because he is out of town on medical conference. At 6 PM on 04/17/2025, the care of the patient was transferred to Dr. Robert. Curly Morales MD Patient data External records reviewed:: [facility] previous records Clinical information provided by:: patient Social determinants that could affect healthcare access:: none Patient has the following chronic illnesses:: Kidney stones How is presenting disease/condition affected by chronic disease/condition?: exacerbated by Evaluation data The following diagnostics were reviewed and interpreted by me:: lab results and radiology exam(s) Lab and/or radiology exams considered but not ordered:: None Interpretation Summary: I reviewed all diagnostic test results: My review of the CT abdomen/pelvis report is: Left renal pelvis stone measuring 10 x 13 mm with left hydronephrosis. Blood/urine tests unremarkable, except hematuria. Medications / Prescriptions Medications or Prescriptions considered but not ordered:: None Medication administrations:: Medication Administration History Discontinued Medications Sodium Chloride (Ns) 1,000 mls @ 999 mls/hr IV .Q1H1M ONE Stop: 04/17/25 15:25 Dextrose/Sodium Chloride (D5-Ns) 1,000 mls @ 1,000 mls/hr IV .Q1H STA Stop: 04/17/25 16:44 Ketorolac Tromethamine (Ketorolac Inj 30 Mg/Ml Vial) 30 mg IVP X1 ONE Stop: 04/17/25 14:26 Last Admin: 04/17/25 16:00 Dose: 30 mg Documented By: VL Morphine Sulfate (Morphine Sulf Inj 4 Mg/Ml Vial) 4 mg IV X1 ONE Stop: 04/17/25 14:26 Last Admin: 04/17/25 16:00 Dose: 4 mg Documented By: VL Ondansetron HCl (Ondansetron Inj 2 Mg/Ml Inj 2 Ml) 4 mg IVP X1 ONE; Protocol Stop: 04/17/25 14:26 Last Admin: 04/17/25 16:00 Dose: 4 mg Documented By: HONG Treatment here included: IVF Zofran 4 mg IV Toradol 30 mg IV Morphine 4 mg IV Consultations Consultation(s) initiated? (list below): Yes Consultation #1 (Physician, Specialty, Details): I discussed the case with urologist Dr. Quintana. About the presentation and exam and diagnostics and treatments here. And needing further care in the hospital. Recommended transfer because he is out of town on medical conference. Diagnosis Differential diagnosis back pain/injury: lumbar radiculopathy, sciatica, strain of lumbar region, renal colic and pyelonephritis Most likely diagnosis given after review of the tests above:: Large left kidney stone Admission Indicated Admission indicated?: not indicated Explain why admission is indicated or not indicated:: No urologist service at this facility currently. Admission Request Was there a request for admission?: No Disposition Plan Disposition Plan: other (specify) (At 6 PM on 04/17/2025, the care of the patient was transferred to Dr. Robert.) Discharge Plan Prescriptions/Referrals Prescriptions/Med Rec: No Action ibuprofen 800 mg tablet 800 mg PO TID PRN (Reason: pain) Qty: 30 0RF hydrocodone-acetaminophen 5-325 mg tablet 1 tab PO BID MDD 10mg PRN (Reason: pain) Qty: 10 0RF Referrals: Laurel Galindo FNP-C [Primary Care Provider] - In 1 week Problem List Clinical Impression: Left ureteral stone Patient/Caregiver Discharge Instructions Print Language: Romanian
[2025-04-17 14:57] LABS: Magnesium 2.2 mg/dL (1.6-2.6)
[2025-04-17 15:56] VITALS: BP 146/93; PULSE 75; RESP 27; TEMP 36.8; O2SAT 99
[2025-04-17] MEDS: KETOROLAC INJ 30 MG/ML VIAL IVP (16:00)
[2025-04-17] MEDS: MORPHINE SULF INJ 4 MG/ML VIAL IV (16:00)
[2025-04-17] MEDS: ONDANSETRON INJ 2 MG/ML INJ 2 ML 4 MG IVP (16:00)
[2025-04-17] MEDS: DEXTROSE 5%-NS 1,000 ML 1000 ML IV (17:17)
--- NOTE | 2025-04-17 18:11 | EDNOTE_ITS ---
Emergency Room Addendum <Maria Luisa Kumar - Last Filed: 04/17/25 18:58> Addendum Narrative: 1800: Care assumed from Dr. Morales, the previous shift emergency physician. Past medical, surgical, social and family history reviewed. Vitals and home medications reviewed. Results and treatment plan discussed. I will assume the care of the patient at this time and will follow the patient. Please refer to the emergency department record for history and examination from initial visit. <Iglesia Bellamy RobertDO - Last Filed: 04/17/25 19:03> Addendum Narrative: 1800: Care assumed from Dr. Morales, the previous shift emergency physician. Past medical, surgical, social and family history reviewed. Vitals and home medications reviewed. Results and treatment plan discussed. I will assume the care of the patient at this time and will follow the patient. Please refer to the emergency department record for history and examination from initial visit. Case was signed out to me pending possible transfer. Patient has a 13 mm stone in the left renal pelvis with mild hydronephrosis. Patient is nontoxic in appearance. No fever. No leukocytosis. Urine is not infected. As it turns out the patient has known about this kidney stone for many weeks. He has an appointment with urologist in [place] on May 07. The transfer center spoke with a urologist in [place], Dr. Clark who has been gracious enough to agree to see the patient as well if the other urology appointment falls through. They may call Dr. lCark.s office at [phone] for an appointment time. The office is located at [facility] [facility] in [place],. I spoke with the patient and his mother and they feel comfortable with this plan.
[2025-04-17 18:27] VITALS: BP 145/96; PULSE 59; RESP 15; TEMP 36.8; O2SAT 99
[2025-04-17 19:10] VITALS: BP 145/96; PULSE 55; RESP 16; TEMP 36.8; O2SAT 99
== END 2025-04-17 19:35 | disposition home or self-care (01) ==
PROVIDERS: Nurse Practitioner Primary Care; Emergency Provider Emergency Medicine
DX: N13.2 Hydronephrosis with renal and ureteral calculous obstruction (principal)
CPT/HCPCS: 36415; 74176; 80053; 81001; 83690; 83735; 85025; 87086; 96361; 96374; 96375; 99284; J1885; J2270; J2405; J7042

== ENCOUNTER 2025-06-10 13:42 | Emergency (ER) | payer MEDICAID, SELFPAY ==
[2025-06-10 13:43] VITALS: PULSE 90; RESP 18; O2SAT 98
--- NOTE | 2025-06-10 13:43 | XR_ITS ---
Examination: CT abdomen and pelvis without contrast. Coronal 3-D reconstructions. Sagittal 2-D reconstructions. Date and time of exam: 06/10/2025 at 2:36 p.m. CTDI: vol (mGy): 9.41 DLP: (mGycm): 627 CLINICAL INDICATION: Left flank pain 1 days duration Technique: Axial images of the abdomen have been obtained, 3 mm slice thickness Intravenous contrast material has not been administered. Low dose protocols were performed. One or more of the following dose reduction techniques were used; automated exposure control, adjustment of the mA and/or KV according to patient size, use of iterative reconstruction technique. Findings: The posterior lower lung zones are clear. I do not see any abnormalities on this noncontrasted CT within the liver spleen pancreas or adrenal glands. The gallbladder has a normal appearance no evidence of any stones. The right kidney collecting system and ureter have a normal CT appearance. On the left side, there are a few small areas of cortical scarring and indentation around the lower lateral margin the left kidney. There are 2 calcified calculi noted within the renal pelvis and the lower half of the left kidney, each one measures about 6 mm in diameter The entire left ureter is perfectly normal in size with no other calculi, the distal ureters appear normal in both sides as does the urinary bladder. The loops of small bowel and colon have a normal CT appearance and I believe that I can identify the appendix in the right lower quadrant appearing normal. IMPRESSION: 1. The only abnormality seen on this study as is the presence of 2 calcified 6 mm diameter calculi within the lower pole collecting system of the left kidney. 2 there is no evidence of any obstructive uropathy at this time 3. The CT of the abdomen and pelvis is otherwise entirely normal
--- NOTE | 2025-06-10 13:45 | EDNOTE_ITS ---
ED General RME/HPI General Chief complaint: Abdominal Pain Stated complaint: abd pain Time Seen by Provider: 06/10/25 13:43 Arrival date/time: 06/10/25 13:42 CC: Left flank pain HPI onset this morning. 10 out of 10. No right sided flank pain denies any painful urination or bloody urination. No OTC medicines taken does not take any regular medication has an allergy to sulfa. Denies shortness of breath difficulty breathing or chest pain. EMS report hypertension on transport Related Data Previous Rx's ?Medication ?Instructions ?Recorded ibuprofen 800 mg tablet 800 mg PO TID PRN pain #30 t abs 08/10/24 hydrocodone 5 mg-acetaminophen 325 1 tab PO BID PRN pa in #10 tabs 11/25/24 mg tablet ibuprofen 800 mg tablet 800 mg PO Q8H PRN pain #30 t abs 04/17/25 ciprofloxacin HCl 500 mg tablet 500 mg PO BID #20 tabs 06/10/25 (Cipro) meloxicam 7.5 mg tablet 7.5 mg PO QDAY #10 tabs 05/20 09/10 ondansetron 4 mg disintegrating 4 mg PO Q8H #10 tabs 1 08/11/24 tablet Allergies Allergy/AdvReac Type Severity Reaction Status Date / Time Sulfa (Sulfonamide Allergy Severe SWELLING Verified 06/10/25 13:48 Antibiotics) Review of Systems Review of Systems Narrative Review of Systems: GEN: No fever, no chills, no weight loss EYES: No discharge, no visual changes, no pain HEENT: No ear pain, no congestion, no sore throat PULM: No shortness of breath, no cough, no congestion CV: No chest pain, no dyspnea on exertion, no palpitations GI: No nausea, no vomiting, no diarrhea, no pain, no constipation : No frequency, no urgency, no dysuria MUSC/SKEL: No joint pain, + flank pain SKIN: No rash PSYCH: No hallucinations, no depression HEME/LYMPH: No easy bleeding or bruising tendencies NEURO: No weakness, no headache Past Medical History Past Medical History NEUROLOGIC: Positive Neurological Disorders and Meningitis; Negative Seizures CARDIAC: Negative Cardiac Disorders, Congestive Heart Failure, Edema or Cellulitis RESPIRATORY: Negative Chronic Obstructive Pulmonary Disease (COPD), Tuberculosis or Sleep Apnea GASTROINTESTINAL: Negative Gastrointestinal Disorders or Hepatitis GENITOURINARY: Positive Genitourinary Disorders and Kidney Stones; Negative Renal Disease MUSCULOSKELETAL: Negative Musculoskeletal Disorders ENDOCRINE: Negative Endocrine Disorders, Diabetes Mellitus Type 1 or Diabetes Mellitus Type 2 HEMATOLOGIC: Negative Blood Disorders, Anemia or Clotting Problems OTHER HISTORY: Positive Hospitalization, Autism and Chicken Pox; Negative Autoimmune Disease, Shingles, Falls, Blood Transfusions, Blood Transfusion Reaction, Anesthesia Reactions, Chemotherapy, MRSA, Measles, Mumps or Cancer Family History FAMILY HISTORY: Positive Family Psychiatric Problems, Family Respiratory Disorders, Family Cardiac Disorders, Family Cancer and Family Surgery; Negative Family Gastrointestinal Problems or Family Anesthesia Reaction Surgical History SURGICAL: Negative Cardiac Surgery, Pacemaker, Endocrine Surgery, Thyroidectomy, Abdominal Surgery, Joint Replacement, Neurologic Surgery or Brain Shunt Social History SMOKING STATUS: Former smoker SECOND HAND EXPOSURE: No ED Exam Narrative Physical exam: [General: In moderate discomfort but not in any acute distress Head normocephalic HEENT: Within acceptable limits Neck is supple nontender Chest equal chest rise nontender to palpation Respiratory: Clear to auscultation no wheezes crackles or rubs CV: Rate rhythm is regular no murmurs rubs or clicks Abdomen is distended secondary to body habitus soft nontender no masses positive bowel sounds all 4 quadrants Back: left CVA tenderness no right sided tenderness, no abdominal pain with palpation. Skin: Pale, mildly diaphoretic, intact no petechiae rash induration ulceration or crepitus Extremities: Moving all extremity against resistance cap refill less than 2 seconds neurosensory intact Neuro: Awake alert oriented x3 Glascow coma 15 no focal deficits] Course Course Course Narrative: There is no acute finding and the patient has no significant leukocytosis. Urine is positive for UTI do not know if this is an infected stone that is circulating in the kidney or just a UTI. Will treat the infection, and then talk to the mother regarding follow-up with the urologist. Quality Measures none Orders Category Date Time Status Saline [Insert IV] NOW Care 06/10/25 13:[address] abdomen pelvis wo con Stat Exams 06/10/25 13:43 Completed CBC Stat Lab 06/10/25 14:20 Completed CMP [Comprehensive Metabolic Panel] Stat Lab 06/10/25 14:20 Completed Drug Screen,Urine Stat Lab 06/10/25 16:59 Completed Lipase Stat Lab 06/10/25 14:20 Completed Urinalysis Stat Lab 06/10/25 16:59 Completed Acetaminophen Ivpb [Ofirmev Inj] Med 06/10/25 16:51 Discontinued 1,000 mg in 100 ml IV Q6HR Ketorolac Inj [Toradol Inj] Med 06/10/25 13:43 Discontinued 15 mg IVP X1 ONE Morphine* Inj Med 06/10/25 17:53 Discontinued 4 mg IVP X1 ONE Ondansetron Inj [Zofran Inj] Med 06/10/25 13:44 Discontinued 4 mg IVP X1 ONE Sodium Chloride 0.9% 1000 ml [Ns] 1,000 ml Med 06/10/25 13:44 Discontinued IV 999 mls/hr cefTRIAXone/D5w 1gm IV premix [Rocephin/D5w 1gm IV Med 06/10/25 17:51 Discontinued premix] 1 gm in 50 ml IV X1 oxyCODONE/APAP 5/325 [Percocet 5/325] Med 06/10/25 15:39 Discontinued 1 tab PO X1 ONE Vital Signs Vital signs: Vital Signs Temperature 97.4 F 06/10/25 13:48 Pulse Rate 71 06/10/25 13:48 Respiratory Rate 19 06/10/25 13:48 Blood Pressure 175/101 H 06/10/25 13:48 Pulse Oximetry (%) 99 06/10/25 13:48 Oxygen Delivery Method Room Air 06/10/25 13:48 Discharge Plan Plan Patient Disposition: HOME (Self Care) Patient condition on transfer: Stable Prescriptions/Referrals Prescriptions/Med Rec: New ciprofloxacin HCl [Cipro] 500 mg tablet 500 mg PO BID Qty: 20 0RF ondansetron 4 mg tablet,disintegrating 4 mg PO Q8H Qty: 10 0RF meloxicam 7.5 mg tablet 7.5 mg PO QDAY Qty: 10 0RF No Action ibuprofen 800 mg tablet 800 mg PO Q8H PRN (Reason: pain) Qty: 30 0RF ibuprofen 800 mg tablet 800 mg PO TID PRN (Reason: pain) Qty: 30 0RF hydrocodone-acetaminophen 5-325 mg tablet 1 tab PO BID MDD 10mg PRN (Reason: pain) Qty: 10 0RF Referrals: Ion Quintana MD [Physician, Urology] - In 1 week Laurel Galindo FNP-C [Primary Care Provider] - In 1 week Problem List Clinical Impression: Urinary tract infection Patient/Caregiver Discharge Instructions Education Materials: ED Bladder Infection, Male (Adult) Print Language: Bahamian Stand Alone Forms: charity: water Award Info., Work/School Release, Patient Portal Info Letter MDM Clinical Information Provided by: patient and EMS Medical Records reviewed [facility] and EMS Meds/Rx considered, not ordered None Labs/Rad/Tests considered, not ordered None Chronic Illness/Social Conditions Explain: History of staghorn kidney stones. Labs Labs: interpreted by sc Lab(s) Interpretation(s): CBC shows mild leukocytosis of 12.2 no anemia thrombocytopenia CMP shows a chloride of 108 glucose of 123 no other electrolyte imbalances renal impairment transaminitis or T. bili elevation. Urine shows 1+ protein 2+ ketones 3+ blood RBCs of 499 WBCs at 795 squamous epithelial 91+ bacteria. UDS is positive for THC Imaging Imaging interpretation: interpreted by sc Imaging Interpretation(s): CT shows two 6 mm stones in the renal pelvis but no uropathy hydroureter or hydronephrosis or urolithiasis. Medication Administration(s) Medication Administration History Discontinued Medications Sodium Chloride (Ns) 1,000 mls @ 999 mls/hr IV .Q1H1M ONE Stop: 06/10/25 14:44 Last Infusion: 06/10/25 16:48 Dose: Infused Documented By: Admin: 06/10/25 14:58 Dose: 999 mls/hr Documented By: SOPHY Acetaminophen (Ofirmev Inj) 1,000 mg in 100 mls @ 250 mls/hr IV Q6HR ARIA Stop: 06/11/25 06:23 Last Admin: 06/10/25 18:47 Dose: Not Given Documented By: SOPHY Non-Admin Reason: Patient Refused Admin: 06/10/25 17:08 Dose: 250 mls/hr Documented By: MATT Ceftriaxone Sodium/Dextrose (Rocephin/D5w 1gm Iv Premix) 1 gm in 50 mls @ 100 mls/hr IV X1 ONE Stop: 06/10/25 18:20 Last Infusion: 06/10/25 20:25 Dose: Infused Documented By: Admin: 06/10/25 18:33 Dose: 100 mls/hr Documented By: SOPHY Ketorolac Tromethamine (Ketorolac Inj 30 Mg/Ml Vial) 15 mg IVP X1 ONE Stop: 06/10/25 13:44 Last Admin: 06/10/25 14:57 Dose: 15 mg Documented By: SOPHY Morphine Sulfate (Morphine Sulf Inj 4 Mg/Ml Vial) 4 mg IVP X1 ONE Stop: 06/10/25 17:54 Last Admin: 06/10/25 18:34 Dose: 4 mg Documented By: SOPHY Ondansetron HCl (Ondansetron Inj 2 Mg/Ml Inj 2 Ml) 4 mg IVP X1 ONE; Protocol Stop: 06/10/25 13:45 Last Admin: 06/10/25 14:57 Dose: 4 mg Documented By: SOPHY Oxycodone/Acetaminophen (Oxycodone/Apap 5/325 Tablet) 1 tab PO X1 ONE Stop: 06/10/25 15:40 Last Admin: 06/10/25 15:45 Dose: 1 tab Documented By: SOPHY
[2025-06-10 13:47] VITALS: BMI 35.4
[2025-06-10 13:48] VITALS: BP 175/101; PULSE 71; RESP 19; TEMP 36.3; O2SAT 99
[2025-06-10 14:37] LABS: Basophils # (Auto) 0.1 Thou/mm3 (0.0-0.2); Basophils % (Auto) 0 % (0-2.5); Eosinophils # (Auto) 0.1 Thou/mm3 (0.0-0.5); Eosinophils % (Auto) 1 % (0-10); Hematocrit 40.8 % (41.0-53.0); Hemoglobin 14.0 g/dL (13.5-16.0); Immature Granulocytes Auto 0.04 Thou/mm3 (0.00-0.00); Lymphocytes # (Auto) 1.4 Thou/mm3 (1.0-4.8); Lymphocytes % (Auto) 12 % (10-50); Mean Corpuscular HGB Conc 34.3 g/dl (31.0-37.0); Mean Corpuscular Hemoglobin 31.2 pg (25.0-35.0); Mean Corpuscular Volume 91 fL (80-100); Monocytes # (Auto) 0.8 Thou/mm3 (0.0-0.8); Monocytes % (Auto) 6 % (0-12); Neutrophils # (Auto) 9.8 Thou/mm3 (1.8-7.7); Neutrophils % (Auto) 81 % (37-80); Nucleated Red Blood Cell # 0.00 Thou/mm3 (0.00-0.00); Nucleated Red Blood Cell % 0 /100 WBC (0); Platelet Count 196 Thou/mm3 (140-440); RDW Standard Deviation 42.7 fL (35.1-43.9); Red Blood Count 4.49 Miln/mm3 (4.50-5.90); White Blood Count 12.2 Thou/mm3 (3.8-10.6)
[2025-06-10 14:56] LABS: Alanine Aminotransferase 29 U/L (10-49); Albumin, Serum 5.1 gm/dL (3.5-5.0); Albumin/Globulin Ratio 1.6 (1.2-2.2); Alkaline Phosphatase 59 U/L (46-116); Anion Gap 12 (7-16); Aspartate Amino Transferase 25 U/L (0-34); BUN/Creatinine Ratio 5 Ratio (12-20); Bilirubin,Total 0.5 mg/dL (0.3-1.2); Blood Urea Nitrogen 6 mg/dL (9-23); Calcium 10.9 mg/dL (8.3-10.6); Calcium (Corrected) 10.9 mg/dL (8.5-10.1); Carbon Dioxide 23.7 mMol/L (20.0-31.0); Chloride 108 mMol/L (98-107); Creatinine (Component) 1.1 mg/dL (0.6-1.3); Estimated Creatinine Clearance 114.0 mL/min (>60); Globulin 3.1 gm/dL (2.3-3.5); Glucose 123 mg/dL (74-106); Lipase 28 U/L (12-53); Osmolality,Calculated 285 (275-295); Potassium 3.7 mMol/L (3.4-5.1); Sodium 144 mMol/L (136-145); Total Protein 8.2 gm/dL (5.7-8.2); eGFR > 60 See Note
[2025-06-10] MEDS: KETOROLAC INJ 30 MG/ML VIAL 15 MG IVP (14:57)
[2025-06-10] MEDS: ONDANSETRON INJ 2 MG/ML INJ 2 ML 4 MG IVP (14:57)
[2025-06-10] MEDS: SODIUM CHLORIDE 0.9% 1000 ML 1,000 ML 999 ML IV (14:58)
[2025-06-10 16:33] VITALS: BP 174/105; PULSE 64; RESP 19; TEMP 36.6; O2SAT 100
[2025-06-10 17:04] LABS: Collection Type, Urine Clean Catch
[2025-06-10] MEDS: ACETAMINOPHEN IVPB 1,000 MG/100 ML VIAL 250 MG IV (17:08)
[2025-06-10 17:15] LABS: Bacteria,Urine 1+; Bilirubin,Urine Negative (Negative); Blood,Urine 3+ (Negative); Clarity,Urine Clear (Clear/Hazy); Color,Urine Yellow (Lt Yel-Yel); Glucose, Urine Negative (Negative); Ketones,Urine 2+ (Negative); Leukocyte Esterase,Urine Positive (Negative); Nitrite,Urine Negative (Negative); PH,Urine 6.5 (5.0-7.0); Protein,Urine 1+ (Neg - Trace); RBC,Urine 499 /hpf (0-3); Specific Gravity,Urine 1.024 (1.001-1.035); Squamous Epithelial Cell,Urine 9 /hpf (0-5); Urobilinogen,Urine Negative mg/dL (0.0-1.0); WBC,Urine 795 /hpf (0-5)
[2025-06-10 17:16] LABS: Amphetamine/Methamp Scrn,U Negative (Negative); Barbiturate Screen,Urine Negative (Negative); Benzodiazepines Screen,Urine Negative (Negative); Benzoylecgonine Screen, Ur Negative (Negative); Fentanyl Screen,Urine Negative (Negative); Opiate Screen,Urine Negative (Negative); THC Screen,Urine Positive (Negative)
[2025-06-10 18:10] VITALS: BP 175/103; PULSE 82; RESP 19; TEMP 36.8; O2SAT 98
[2025-06-10] MEDS: cefTRIAXone/D5w 1gm IV premix 1 GM/50 ML BAG IV (18:33)
[2025-06-10] MEDS: MORPHINE SULF INJ 4 MG/ML VIAL IVP (18:34)
[2025-06-10 20:28] VITALS: BP 145/97; PULSE 77; RESP 16; TEMP 36.8; O2SAT 98
== END 2025-06-10 20:42 | disposition home or self-care (01) ==
PROVIDERS: Registered Nurse General Practice; Emergency Provider Family Medicine
DX: N39.0 Urinary tract infection, site not specified (principal); I10 Essential (primary) hypertension; Z87.442 Personal history of urinary calculi
CPT/HCPCS: 36415; 74176; 80053; 80307; 81001; 83690; 85025; 96361; 96365; 96366; 96375; 99284; J0131; J0696; J1885; J2270; J2405; J7030; A9270